=== PATIENT | female | born 1955 | race Caucasian/White ===

== ENCOUNTER 2016-06-07 09:45 | Observation (INO) | payer OTHER ==
[2016-06-07] MEDS ORDERED: ASPIRIN 81 MG TABLET, CHEWABLE PO ONE (10:03)
--- NOTE | 2016-06-07 10:06 | ER Document Report ---
ED Medical Screen (RME) - General Chief Complaint: Chest Pain Stated Complaint: CHEST PAIN Mode of Arrival: Ambulatory Information source: Patient Notes: patient presents to the emergency department with chest pain is started last night. Reports feeling palpitations. EKG Afib Reports history of high blood pressure. I have greeted and performed a rapid initial assessment of this patient. A comprehensive ED assessment and evaluation of the patient, analysis of test results and completion of the medical decision making process will be conducted by additional ED providers. TRAVEL OUTSIDE OF THE [place] IN LAST 30 DAYS: No - Related Data Allergies/Adverse Reactions: Penicillins Allergy (Verified 06/07/16 10:00) prednisone Allergy (Verified 06/07/16 10:00) Past Medical History - Social History Chew tobacco use (# tins/day): No Frequency of alcohol use: None Drug Abuse: None Renal/ Medical History: Denies: Hx Peritoneal Dialysis Physical Exam - Vital signs Vitals: Temp Pulse Resp BP Pulse Ox 97.9 F 60 20 147/109 H 99 06/07/16 10:00 06/07/16 10:00 06/07/16 10:00 06/07/16 10:00 06/07/16 10:00 Course - Vital Signs Vital signs: Temp Pulse Resp BP Pulse Ox 97.9 F 60 20 147/109 H 99 06/07/16 10:00 06/07/16 10:00 06/07/16 10:00 06/07/16 10:00 06/07/16 10:00
[2016-06-07] MEDS ORDERED: NORMAL SALINE 1000 ML 1,000 ML IV ONE (10:09)
--- NOTE | 2016-06-07 10:09 | EKG REPORT ---
SEVERITY:- ABNORMAL ECG - ATRIAL FIBRILLATION WITH RAPID V-RATE CONSIDER ANTEROSEPTAL INFARCT ST DEPRESSION, PROBABLY RATE RELATED : Confirmed by: Ángel Aceves MD 07-Jun-2016 10:09:17
[2016-06-07] MEDS ORDERED: DILTIAZEM HCL INJ 25 MG/5 ML VIAL IV ONE (10:14)
[2016-06-07] MEDS ORDERED: DILTIAZEM HCL/D5W 125 ML IV PRN (10:14)
--- NOTE | 2016-06-07 10:18 | ER Document Report ---
ED Cardiac - General Chief Complaint: Chest Pain Stated Complaint: CHEST PAIN Mode of Arrival: Ambulatory Notes: The patient is a 60-year-old female, past medical history hypertension, presents with 10 hours of substernal chest pressure and feeling like her heart is fluttering. She has had intermittent palpitations in the past that quickly resolved. She has never been diagnosed with A. fib. She took a baby aspirin this morning. Denies shortness of breath, fevers, cough, leg swelling, nausea, vomiting, syncope, headache or neurologic symptoms. TRAVEL OUTSIDE OF THE [place] IN LAST 30 DAYS: No - Related Data Allergies/Adverse Reactions: Penicillins Allergy (Verified 06/07/16 10:00) prednisone Allergy (Verified 06/07/16 10:00) Past Medical History - General Information source: Patient - Social History Smoking Status: Never Smoker Chew tobacco use (# tins/day): No Frequency of alcohol use: None Drug Abuse: None Family History: Reviewed & Not Pertinent Renal/ Medical History: Denies: Hx Peritoneal Dialysis Review of Systems - Review of Systems Notes: REVIEW OF SYSTEMS: CONSTITUTIONAL: -fevers, -chills EENT: -eye pain, -difficulty swallowing, -nasal congestion CARDIOVASCULAR: +chest pain, -syncope. RESPIRATORY: -cough, -SOB GASTROINTESTINAL: -abdominal pain, - nausea, -vomiting, -diarrhea GENITOURINARY: -dysuria, -hematuria MUSCULOSKELETAL: -back pain, -neck pain SKIN: -rash or skin lesions. HEMATOLOGIC: -easy bruising or bleeding. LYMPHATIC: -swollen, enlarged glands. NEUROLOGICAL: -altered mental status or loss of consciousness, -headache, - neurologic symptoms PSYCHIATRIC: -anxiety, -depression. ALL OTHER SYSTEMS REVIEWED AND NEGATIVE. Physical Exam - Vital signs Vitals: Temp Pulse Resp BP Pulse Ox 97.9 F 60 20 147/109 H 99 06/07/16 10:00 06/07/16 10:00 06/07/16 10:00 06/07/16 10:06/07/16 10:00 - Notes Notes: PHYSICAL EXAMINATION: GENERAL: Well-appearing, well-nourished and in no acute distress. HEAD: Atraumatic, normocephalic. EYES: Pupils equal round and reactive to light, extraocular movements intact, sclera anicteric, conjunctiva are normal. ENT: nares patent, oropharynx clear without exudates. Moist mucous membranes. NECK: Normal range of motion, supple without lymphadenopathy LUNGS: Breath sounds clear to auscultation bilaterally and equal. No wheezes rales or rhonchi. HEART: Irregularly irregular heart rate, tachycardic ABDOMEN: Soft, nontender, normoactive bowel sounds. No guarding, no rebound. No masses appreciated. EXTREMITIES: Normal range of motion, no pitting or edema. No cyanosis. NEUROLOGICAL: Cranial nerves grossly intact. Normal speech, normal gait. Normal sensory, motor, and reflex exams. PSYCH: Normal mood, normal affect. SKIN: Warm, Dry, normal turgor, no rashes or lesions noted. Course - Re-evaluation Re-evalutation: Patient with stable A. fib with RVR and chest pain. Symptoms ongoing for 12 hours. Patient converted into normal sinus rhythm and 15 mg diltiazem bolus and started on a drip. She is never been diagnosed with A. fib in the past and is not on any anticoagulation. Patient's chest pain resolved after she went into normal sinus rhythm at a rate of 65. First troponin 0.03. No signs of infection to explain leukocytosis. This may be a stress reaction to her A. fib. Since this is new onset A. fib, patient requires admission for further evaluation and treatment. CHADS score 1. Her PMD is Dr. Rivera. 06/07/16 11:[address] Matthews and will begin po Diltiazem (30 mg po q6h) and then stop drip. Will bring pt in for Tele Obs for further evaluation of her chest pain and A fib. - Vital Signs Vital signs: Temp Pulse Resp BP Pulse Ox 97.9 F 60 20 147/109 H 99 06/07/16 10:00 06/07/16 10:00 06/07/16 10:00 06/07/16 10:00 06/07/16 10:00 - Laboratory Result Diagrams: 06/07/16 10:10 06/07/16 10:10 Laboratory results interpreted by me: 06/07/16 06/07/16 10:10 10:10 WBC 15.6 H RBC 5.66 H Hgb 16.7 H Hct 49.3 H Absolute Neutrophils 10.8 H Sodium 149.1 H Chloride 109 H BUN 24 H Direct Bilirubin 0.5 H AST 48 H ALT 62 H - Diagnostic Test Radiology reviewed: Image reviewed, Reports reviewed Radiology results interpreted by me: CXR: Cardiomegaly without vascular congestion - EKG Interpretation by Me EKG shows normal: QRS Complexes Rate: Tachycardia Rhythm: A.Fib Discharge - Discharge Clinical Impression: Atrial fibrillation with rapid ventricular response Chest pain Qualifiers: Chest pain type: unspecified Qualified Code(s): R07.9 - Chest pain, unspecified Condition: Stable Disposition: ADMITTED OBSERVATION Admitting Provider: [facility] Admitted: Telemetry Referrals: GIBRAN ROMERO MD [Primary Care Provider] - Follow up as needed
[2016-06-07 10:31] LABS: ABSOLUTE LYMPHOCYTES (AUTO) 3.3 10^3/uL (0.5-4.7); ABSOLUTE MONOCYTES (AUTO) 1.4 10^3/uL (0.1-1.4); ABSOLUTE NEUT (AUTO) 10.8 10^3/uL (1.7-8.2); BASOPHILS % (AUTO) 0.3 % (0-2); EOSINOPHILS % (AUTO) 0.3 % (0-6); HEMATOCRIT 49.3 % (36.0-47.0); HEMOGLOBIN 16.7 g/dL (12.0-15.5); HGB HCT DIFFERENCE 0.8; LYMPHOCYTES % (AUTO) 21.2 % (13-45); MEAN CORPUSCULAR HEMOGLOBIN 29.5 pg (27.0-33.4); MEAN CORPUSCULAR HGB CONC 33.9 g/dL (32.0-36.0); MEAN CORPUSCULAR VOLUME 87 fl (80-97); MONOCYTES % (AUTO) 8.8 % (3-13); RED BLOOD COUNT 5.66 10^6/uL (3.72-5.28); RED CELL DISTRIBUTION WIDTH 13.6 % (11.5-14.0); SEGMENTED NEUTROPHILS % (AUTO) 69.4 % (42-78); WHITE BLOOD COUNT 15.6 10^3/uL (4.0-10.5)
[2016-06-07 10:36] LABS: PROTHROMBIN TIME 13.1 SEC (11.4-15.4)
[2016-06-07 10:50] LABS: ALANINE AMINOTRANSFERASE 62 U/L (9-52); ALBUMIN 4.5 g/dL (3.5-5.0); ALKALINE PHOSPHATASE 120 U/L (38-126); ANION GAP 13 (5-19); ASPARTATE AMINO TRANSFERASE 48 U/L (14-36); BILIRUBIN,DIRECT 0.5 mg/dL (0.0-0.4); BILIRUBIN,TOTAL 0.7 mg/dL (0.2-1.3); BLOOD UREA NITROGEN 24 mg/dL (7-20); CALCIUM 9.8 mg/dL (8.4-10.2); CARBON DIOXIDE 27 mmol/L (22-30); CHLORIDE 109 mmol/L (98-107); CREATINE KINASE 60 U/L (30-135); CREATININE RESULT 0.83 mg/dL (0.52-1.25); GLUCOSE 106 mg/dL (75-110); POTASSIUM 3.7 mmol/L (3.6-5.0); SODIUM 149.1 mmol/L (137-145); TOTAL PROTEIN 7.4 g/dL (6.3-8.2)
[2016-06-07 11:02] LABS: CREATINE KINASE MB 2.88 ng/mL (<4.55)
[2016-06-07 11:06] LABS: TROPONIN I 0.037 ng/mL
[2016-06-07] MEDS ORDERED: DILTIAZEM HCL 30 MG TABLET PO ONE (11:32)
[2016-06-07] MEDS ORDERED: ACETAMINOPHEN 325 MG TABLET PO PRN (14:07)
[2016-06-07] MEDS ORDERED: ONDANSETRON HCL INJ/PF 4 MG/2 ML SDV IV PRN (14:07)
[2016-06-07] MEDS ORDERED: NORMAL SALINE 1000 ML 1,000 ML IV PRN (14:07)
--- NOTE | 2016-06-07 14:29 | PDOC H&P ---
History of Present Illness Admission Date/PCP: 06/07/16 11:54 GIBRAN ROMERO MD Patient complains of: Chest pain History of Present Illness: CHAD OLVERA is a 60 year old female, history of hypertension presents to the hospital chest pain of one-day duration. Pain started last night characterized as heavy on the precordium with associated nausea as well as palpitation. Denies any vomiting shortness of breath or diaphoresis. No cough or chest congestion. No significant caffeine intake. Has been some sinus congestion recently and she started taking [id number] decongestants but none within the last 48 hours. Symptoms resove by itself. Earlier this morning , it has recurred. Patient went to the emergency room, multiple with atrial fibrillation with RVR, normal saline bolus, Cardizem intravenously, and drip was started. She converted back to sinus and patient was referred for observation. Past Medical History Past Medical History: Medication reconciliation pending verification from her pharmacist. Cardiac Medical History: Reports: Hypertension GI Medical History: Reports: Gastroesophageal Reflux Disease, Hiatal Hernia, Other - Fatty liver Musculoskeltal Medical History: Reports: Arthritis, Other - Bursitis Past Surgical History Past Surgical History: Reports: Hysterectomy Social History Information Source: Patient Smoking Status: Never Smoker Frequency of Alcohol Use: None Hx Recreational Drug Use: No Drugs: None Family History Family History: CVA, Hypertension, Malignancy Parental Family History Reviewed: Yes Children Family History Reviewed: Yes Sibling(s) Family History Reviewed.: Yes Medication/Allergy Home Medications: Azithromycin [Zithromax 250 mg Tablet] 250 mg PO DAILY 06/07/16 Cyanocobalamin (Vitamin B-12) [Vitamin B-12 1000 Mcg Tablet] 1 tab PO DAILY Esomeprazole Magnesium [Nexium] 40 mg PO DAILY 06/07/16 Losartan Potassium [Cozaar 50 mg Tablet] 50 mg PO DAILY 06/07/16 Meloxicam [Mobic 15 mg Tablet] 15 mg PO DAILY 06/07/16 Montelukast Sodium [Singulair 10 mg Tablet] 10 mg PO DAILY 06/07/16 Allergies/Adverse Reactions: Penicillins Allergy (Verified 06/07/16 10:00) prednisone Allergy (Verified 06/07/16 10:00) Review of Systems Constitutional: ABSENT: chills, fever(s), headache(s), night sweats, weakness, weight gain, weight loss Eyes: ABSENT: visual disturbances Ears: ABSENT: hearing changes Nose, Mouth, and Throat: ABSENT: mouth pain, sore throat Cardiovascular: PRESENT: chest pain, palpitations. ABSENT: dyspnea on exertion , edema, orthropnea Respiratory: ABSENT: cough, hemoptysis, sputum Gastrointestinal: PRESENT: nausea. ABSENT: abdominal pain, constipation, diarrhea, hematemesis, hematochezia, melena, vomiting Genitourinary: ABSENT: difficulty urinating, dysuria, hematuria Musculoskeletal: ABSENT: joint swelling Integumentary: ABSENT: pruritus, rash, wounds Neurological: ABSENT: abnormal gait, abnormal speech, confusion, dizziness, focal weakness, syncope Psychiatric: ABSENT: anxiety, depression, homidical ideation, suicidal ideation Endocrine: ABSENT: cold intolerance, heat intolerance, polydipsia, polyuria Hematologic/Lymphatic: ABSENT: easy bleeding, easy bruising Physical Exam Vital Signs: Temp Pulse Resp BP Pulse Ox 97.9 F 60 18 113/60 97 06/07/16 10:00 06/07/16 10:00 06/07/16 13:03 06/07/16 13:03 06/07/16 13:03 General appearance: PRESENT: no acute distress, obese Head exam: PRESENT: atraumatic, normocephalic Eye exam: PRESENT: conjunctiva pink, EOMI, PERRLA. ABSENT: scleral icterus Ear exam: PRESENT: normal external ear exam Mouth exam: PRESENT: dry mucosa, neck supple, tongue midline Throat exam: ABSENT: post pharyngeal erythema, tonsillar erythema Neck exam: ABSENT: carotid bruit, JVD, lymphadenopathy, thyromegaly Respiratory exam: PRESENT: clear to auscultation zoya. ABSENT: rales, rhonchi, wheezes Cardiovascular exam: PRESENT: RRR, +S1, +S2. ABSENT: diastolic murmur, gallop, rubs, systolic murmur Pulses: PRESENT: normal dorsalis pedis pul Vascular exam: PRESENT: normal capillary refill GI/Abdominal exam: PRESENT: normal bowel sounds, soft. ABSENT: distended, guarding, mass, organolmegaly, rebound, tenderness Rectal exam: PRESENT: deferred Extremities exam: PRESENT: full ROM. ABSENT: calf tenderness, clubbing, pedal edema Neurological exam: PRESENT: alert, awake, oriented to person, oriented to place , oriented to time, oriented to situation Psychiatric exam: PRESENT: appropriate affect, normal mood. ABSENT: homicidal ideation, suicidal ideation Skin exam: PRESENT: dry, intact, warm. ABSENT: cyanosis, rash Results Impressions: Chest X-Ray 06/07/16 10:03 IMPRESSION: HEART ENLARGED WITHOUT FAILURE. NO OTHER SIGNIFICANT RADIOGRAPHIC FINDING IN THE CHEST. Assessment & Plan - Diagnosis (1) Atrial fibrillation with rapid ventricular response Is this a current diagnosis for this admission?: Yes (2) Chest pain Qualifiers: Chest pain type: unspecified Qualified Code(s): R07.9 - Chest pain, unspecified Is this a current diagnosis for this admission?: Yes (3) Leukocytosis Qualifiers: Leukocytosis type: unspecified Qualified Code(s): D72.829 - Elevated white blood cell count, unspecified Is this a current diagnosis for this admission?: Yes (4) Dehydration Is this a current diagnosis for this admission?: Yes (5) Hypertension Qualifiers: Hypertension type: essential hypertension Qualified Code(s): I10 - Essential (primary) hypertension Is this a current diagnosis for this admission?: Yes (6) GERD (gastroesophageal reflux disease) Qualifiers: Esophagitis presence: without esophagitis Qualified Code(s): K21.9 - Gastro-esophageal reflux disease without esophagitis Is this a current diagnosis for this admission?: Yes (7) Hiatal hernia Is this a current diagnosis for this admission?: Yes - Time Time Spent: 50 to 70 Minutes - Plan Summary Plan Summary: Admit for observation and weaning Cardizem to off, begin oral Cardizem as well as aspirin. Obtain cardiac enzymes 3. Consult cardiology for the new onset A. fib. We will check TSH, N d-dimer. I will hydrate the patient with normal saline and recheck WBC in the morning. Supplemental oxygen will be given. Further testing depends on initial evaluation as outlined above.
[2016-06-07 15:20] LABS: APPEARANCE,URINE CLEAR; BILIRUBIN,URINE NEGATIVE (NEGATIVE); GLUCOSE, URINE NEGATIVE (NEGATIVE); KETONES,URINE NEGATIVE (NEGATIVE); LEUKOCYTE ESTERASE,URINE NEGATIVE (NEGATIVE); NITRITE,URINE NEGATIVE (NEGATIVE); PROTEIN,URINE NEGATIVE (NEGATIVE); URINE SPECIFIC GRAVITY 1.013; UROBILINOGEN,URINE NEGATIVE mg/dL (<2.0)
[2016-06-07] MEDS ORDERED: ENOXAPARIN SODIUM INJ 40 MG/0.4 ML DISP.SYRIN SUBCUT ONE (15:30)
[2016-06-07 15:37] LABS: CREATINE KINASE MB 2.09 ng/mL (<4.55); TROPONIN I 0.07 ng/mL
[2016-06-07] MEDS: LANSOPRAZOLE 30 MG TAB.RAP.DR PO SCH (16:26)
--- NOTE | 2016-06-07 17:15 | EKG REPORT ---
SEVERITY:- NORMAL ECG - SINUS RHYTHM : Confirmed by: Ángel Aceves MD 07-Jun-2016 17:14:48
[2016-06-07] MEDS: DOCUSATE SODIUM 100 MG CAPSULE PO SCH (17:34)
[2016-06-07] MEDS ORDERED: DILTIAZEM HCL 30 MG TABLET PO SCH (18:00)
[2016-06-07 18:49] LABS: CREATINE KINASE MB 1.71 ng/mL (<4.55); TROPONIN I 0.058 ng/mL
--- NOTE | 2016-06-07 18:50 | PDOC CONSULTATION ---
Consultation Consult Date: 06/07/16 Attending physician:: BRITT RODRIGUEZ Consult reason:: Chest pain, atrial fibrillation History of Present Illness Admission Date/PCP: 06/07/16 14:07 GIBRAN ROMERO MD Patient complains of: Chest pain and shortness of breath History of Present Illness: CHAD OLVERA is a 60 year old female, history of hypertension presents to the hospital chest pain of one-day duration. Pain started last night characterized as heavy on the precordium with associated nausea as well as palpitation. Patient claims she woke up last night with chest pain and palpitations. Denies any vomiting or diaphoresis. Patient has noted some shortness of breath. No cough or chest congestion. No significant caffeine intake. Has been some sinus congestion recently and she started taking over-the -counter decongestants but none within the last 48 hours. Symptoms resove by itself. Earlier this morning, it has recurred. Patient went to the emergency room, multiple with atrial fibrillation with RVR, normal saline bolus, Cardizem intravenously, and drip was started. She converted back to sinus. I was asked to evaluate patient because of chest pain, shortness of breath and palpitations with atrial fibrillation. Past Medical History Cardiac Medical History: Reports: Hypertension GI Medical History: Reports: Gastroesophageal Reflux Disease, Hiatal Hernia, Other - Fatty liver Musculoskeltal Medical History: Reports: Arthritis, Other - Bursitis Past Surgical History Past Surgical History: Reports: Hysterectomy Social History Information Source: Patient Smoking Status: Never Smoker Frequency of Alcohol Use: None Hx Recreational Drug Use: No Drugs: None - Advance Directive Resuscitation Status: Full Code Surrogate healthcare decision maker:: Patient's Family History Family History: CVA, Hypertension, Malignancy Parental Family History Reviewed: Yes Children Family History Reviewed: Yes Sibling(s) Family History Reviewed.: Yes - Negative for premature coronary artery disease or sudden cardiac in the family amongst first degree relatives. Medication/Allergy Home Medications: Azithromycin [Zithromax 250 mg Tablet] 250 mg PO DAILY 06/07/16 Cyanocobalamin (Vitamin B-12) [Vitamin B-12 1000 Mcg Tablet] 1 tab PO DAILY Esomeprazole Magnesium [Nexium] 40 mg PO DAILY 06/07/16 Losartan Potassium [Cozaar 50 mg Tablet] 50 mg PO DAILY 06/07/16 Meloxicam [Mobic 15 mg Tablet] 15 mg PO DAILY 06/07/16 Montelukast Sodium [Singulair 10 mg Tablet] 10 mg PO DAILY 06/07/16 Allergies/Adverse Reactions: Penicillins Allergy (Verified 06/07/16 10:00) prednisone Allergy (Verified 06/07/16 10:00) Review of Systems Review of Systems: Please see history of present illness and past medical history as wall. Constitutional: No fever or chills reported. Head : No recent chronic headaches, recent head injury. Eyes: No recent eye pain, diplopia, redness, discharge, acute visual changes. Ears: No recent chronic ear pain, acute hearing loss, ear discharge. Oral cavity: No recent ulcerations, bleeding, oral cavity discomfort. Neck: No recent acute neck pain reported. Hematologic: No recent easy bruising or bleeding or hematologic malignancy reported. Lymphatic: No recent lymphatic malignancy, chronic lymphadenopathy reported yet Cardiovascular system review: See history of present illness. Respiratory system review: No recent chronic cough, hemoptysis, blood clots in the lungs reported. Mild Shortness of breath on exertion Gastrointestinal system review: Negative for any recent acute or chronic abdominal pain, hematemesis, melena, recent change in bowel habits. Genitourinary system review: No recent acute or chronic hematuria, flank pain, UTI etc. reported. Skin system review: Negative for any recent abnormal bruising, no rash, no pruritus reported. Neurologic: No prior history of strokes, mini strokes, seizure disorder. Psychologic: No history of major psychosis or major depression reported. Musculoskeletal: Minor aches and pains reported. No acute joint swelling reported. Endocrine: No recent polyuria, polydipsia, recent heat or cold intolerance. Physical Exam Vital Signs: Temp Pulse Resp BP Pulse Ox 97.9 F 56 L 18 128/55 H 100 06/07/16 16:40 06/07/16 16:40 06/07/16 16:40 06/07/16 16:40 06/07/16 16:40 Intake & Output 06/06/16 06/07/16 06/08/16 06:59 06:59 06:59 Weight 90.5 kg Exam: GENERAL: well-nourished and in no acute distress. Alert and oriented x3 HEAD: Atraumatic, normocephalic. EYES: Pupils equal round and reactive to light, extraocular movements intact, sclera anicteric, conjunctiva are normal. ENT: TMs normal, nares patent, oropharynx clear without exudates. Moist mucous membranes. No oral ulcerations or bleeding gums noted NECK: supple without lymphadenopathy. Trachea is central. No cervical or axillary lymphadenopathy noted. Carotids are 2+, JVD WNL LUNGS: Respiration seems nonlabored, no significant accessory muscle action noted. Breath sounds clear to auscultation bilaterally and equal noted. No wheezes rales or rhonchi noted. No significant dullness noted on percussion. CHEST: Palpation of the chest wall shows no significant chest wall tenderness. No other significant abnormalities noted. HEART: [place] PUBLICIST, No PSH, 1/6 [place] aortic area, 1/6 rhodes systolic murmur mitral area, no rubs, no gallops. ABDOMEN: Soft, no significant tenderness appreciated, normoactive bowel sounds. No guarding, no rebound. No rigidity noted . No masses appreciated. EXTREMITIES: Pedal pulses are 1-2+, no calf tenderness noted. No clubbing or cyanosis.trace to 1+ pedal edema noted NEUROLOGICAL: Focused neurological exam showed no significant neurologic deficit. Normal speech, no focal weakness appreciated. PSYCH: Normal mood, normal affect. Judgment and insight within normal limits. SKIN: No significant ecchymosis, rash, ulcerations or signs of pruritus noted. MUSCULOSKELETAL EXAM: No significant joint swelling noted. Results Laboratory Results: 06/07/16 15:00 Urine Color YELLOW Urine Appearance CLEAR Urine pH 6.0 Ur Specific [place] 1.013 Urine Protein NEGATIVE Urine Glucose (UA) NEGATIVE Urine Ketones NEGATIVE Urine Blood NEGATIVE Urine Nitrite NEGATIVE Ur Leukocyte Esterase NEGATIVE Urine WBC (Auto) 1 Urine RBC (Auto) 0 06/07/16 06/07/16 14:32 14:32 Creatine Kinase 41 CK-MB (CK-2) 2.09 Troponin I 0.070 EKG Comments: Initial EKG shows atrial fibrillation with rapid ventricular response. Subsequent EKG showed sinus rhythm. Impressions: Chest X-Ray 06/07/16 10:03 IMPRESSION: HEART ENLARGED WITHOUT FAILURE. NO OTHER SIGNIFICANT RADIOGRAPHIC FINDING IN THE CHEST. Assessment & Plan - Diagnosis (1) Atrial fibrillation with rapid ventricular response Is this a current diagnosis for this admission?: Yes (2) Chest pain Qualifiers: Chest pain type: unspecified Qualified Code(s): R07.9 - Chest pain, unspecified Is this a current diagnosis for this admission?: Yes (3) Hiatal hernia Is this a current diagnosis for this admission?: Yes (4) Hypertension Qualifiers: Hypertension type: essential hypertension Qualified Code(s): I10 - Essential (primary) hypertension Is this a current diagnosis for this admission?: Yes (5) Sleep disorder Is this a current diagnosis for this admission?: Yes (6) Obesity Qualifiers: Obesity severity: unspecified obesity severity Is this a current diagnosis for this admission?: Yes - Notes Notes: Atrial fibrillation with rapid ventricular response: Patient presented with this. Currently in sinus rhythm. Patient has elevated chads score of 2. However there may be a precipitating factor of decongestant use. At this point would recommend just rate control and aspirin therapy. Chronic anti- coagulation would be considered if there is recurrence. Would recommend that patient have a event monitor for 30 days. Chest pain: Probably precipitated by atrial fibrillation. Patient could have underlying CAD, gastroesophageal reflux, distal gastritis. Have recommended a stress test to be performed. Hiatal hernia: Patient advised in weight loss and patient will benefit from proton pump inhibitor. Hypertension: Recommend good control of blood pressure. Sleep disorder: Patient gives history of multiple nocturnal awakening, nocturia , daytime fatigue and tiredness. Since patient has paroxysmal atrial fibrillation, will recommend that patient be tested for sleep apnea. Obesity: Patient has been encouraged in weight loss. - Time Time Spent: 30 to 50 Minutes - CODE STATUS was discussed, patient remains full code. Surrogate decision-maker patient's . Multiple medical problems were addressed.More than 50% of the time spent coordinating care, discussing management plans with involved caregivers. Management plans discussed with involved personnels. Medical decision making was of moderate complexity.
[2016-06-07 20:37] LABS: CHOLESTEROL 142.05 mg/dL (0-200); Direct HDL 47 mg/dL (>40); TRIGLYCERIDES 157 mg/dL (<150)
[2016-06-07 20:47] LABS: DIRECT LDL 68 mg/dL (<100)
[2016-06-07 20:52] LABS: VLDL CHOLESTEROL 31.4 mg/dL (10-31)
[2016-06-07 23:06] LABS: CREATINE KINASE MB 1.27 ng/mL (<4.55); TROPONIN I 0.04 ng/mL
[2016-06-08] MEDS ORDERED: DILTIAZEM HCL 30 MG TABLET PO SCH (00:42)
[2016-06-08] MEDS ORDERED: DILTIAZEM HCL 30 MG TABLET PO ONE (01:00)
[2016-06-08 05:17] LABS: HEMATOCRIT 39.9 % (36.0-47.0); HGB HCT DIFFERENCE 0.3; MEAN CORPUSCULAR HEMOGLOBIN 29.2 pg (27.0-33.4); MEAN CORPUSCULAR HGB CONC 33.6 g/dL (32.0-36.0); MEAN CORPUSCULAR VOLUME 87 fl (80-97); RED BLOOD COUNT 4.59 10^6/uL (3.72-5.28); RED CELL DISTRIBUTION WIDTH 13.7 % (11.5-14.0); WHITE BLOOD COUNT 6.6 10^3/uL (4.0-10.5)
[2016-06-08 05:45] LABS: HEMOGLOBIN 13.4 g/dL (12.0-15.5)
[2016-06-08 05:48] LABS: ANION GAP 10 (5-19); BLOOD UREA NITROGEN 18 mg/dL (7-20); CALCIUM 8.8 mg/dL (8.4-10.2); CARBON DIOXIDE 23 mmol/L (22-30); CHLORIDE 112 mmol/L (98-107); GLUCOSE 84 mg/dL (75-110); POTASSIUM 3.9 mmol/L (3.6-5.0)
[2016-06-08] MEDS: LANSOPRAZOLE 30 MG TAB.RAP.DR PO SCH (07:50)
[2016-06-08] MEDS ORDERED: ENOXAPARIN SODIUM INJ 40 MG/0.4 ML DISP.SYRIN SUBCUT SCH (08:00)
--- NOTE | 2016-06-08 08:18 | PDOC DISCHARGE SUMMARY ---
General - Admit/Disc Date/PCP Admission Date/Primary Care Provider: 06/07/16 14:07 GIBRAN ROMERO MD Discharge Date: 06/08/16 - Discharge Diagnosis (1) Atrial fibrillation with rapid ventricular response Is this a current diagnosis for this admission?: Yes (2) Chest pain Is this a current diagnosis for this admission?: Yes (3) Leukocytosis Is this a current diagnosis for this admission?: Yes (4) Dehydration Is this a current diagnosis for this admission?: Yes (5) Hypertension Is this a current diagnosis for this admission?: Yes (6) GERD (gastroesophageal reflux disease) Is this a current diagnosis for this admission?: Yes (7) Hiatal hernia Is this a current diagnosis for this admission?: Yes - Additional Information Resuscitation Status: Full Code Discharge Diet: Cardiac - low-fat low-salt Discharge Activity: Activity As Tolerated, Balance Activity w/Rest Home Medications: Cyanocobalamin (Vitamin B-12) [Vitamin B-12 1000 mcg Tablet] 1 tab PO DAILY Esomeprazole Magnesium [Nexium] 40 mg PO DAILY 06/07/16 Montelukast Sodium [Singulair 10 mg Tablet] 10 mg PO DAILY 06/07/16 Aspirin [Aspirin 325 mg Tablet] 325 mg PO DAILY tablet 06/08/16 Diltiazem HCl [Cardizem Cd 120 mg Capsule] 1 cap.sr PO DAILY #30 cap.sr Meloxicam [Mobic 15 mg Tablet] 15 mg PO DAILY PRN #0 06/08/16 Additional Information: 1. Event recorder as outpatient, stress test as outpatient with Dr. Hutton 2. Avoid decongestants and caffeine History of Present Illness Patient complains of: Chest pain History of Present Illness: CHAD OLVERA is a 60 year old female, history of hypertension presents to the hospital chest pain of one-day duration. Pain started last night characterized as heavy on the precordium with associated nausea as well as palpitation. Denies any vomiting shortness of breath or diaphoresis. No cough or chest congestion. No significant caffeine intake. Has been some sinus congestion recently and she started taking [id number] decongestants but none within the last 48 hours. Symptoms resove by itself. Earlier this morning , it has recurred. Patient went to the emergency room, multiple with atrial fibrillation with RVR, normal saline bolus, Cardizem intravenously, and drip was started. She converted back to sinus and patient was referred for observation. Hospital Course Hospital Course: The patient was admitted to telemetry. The patient converted back to sinus in the emergency room and was placed on oral Cardizem. Aspirin was also added. Serial cardiac enzymes were obtained and they were negative. Patient was hydrated and eventually her leukocytosis normalized as well as hemoglobin and hematocrit. No more arrhythmia was reported. There was an episode of bradycardia however and the patient's Cardizem was held this morning. The patient improved. Cardiology evaluated the patient and recommended outpatient event recorder and stress test, continue the Cardizem and aspirin. The rest of the hospital stay is unremarkable. Physical Exam Vital Signs: Temp Pulse Resp BP Pulse Ox 97.6 F 49 L 18 130/70 H 99 06/08/16 04:16 06/08/16 06:45 06/08/16 04:16 06/08/16 06:45 06/08/16 04:16 Intake & Output 06/07/16 06/08/16 06/09/16 06:59 06:59 06:59 Intake Total 580 Balance 580 Weight 92.6 kg General appearance: PRESENT: no acute distress, cooperative Head exam: PRESENT: normocephalic Eye exam: PRESENT: EOMI Mouth exam: PRESENT: moist, neck supple Neck exam: ABSENT: JVD Respiratory exam: PRESENT: clear to auscultation zoya Cardiovascular exam: PRESENT: RRR. ABSENT: gallop GI/Abdominal exam: PRESENT: normal bowel sounds, soft. ABSENT: distended, tenderness Extremities exam: ABSENT: pedal edema Neurological exam: PRESENT: alert, awake, oriented to person, oriented to place , oriented to time, oriented to situation Skin exam: PRESENT: dry, warm. ABSENT: cyanosis Results Laboratory Results: 06/08/16 04:24 06/08/16 04:31 06/07/16 06/07/16 06/08/16 15:00 18:08 04:24 WBC 6.6 RBC 4.59 Hgb 13.4 D Hct 39.9 MCV 87 MCH 29.2 MCHC 33.6 RDW 13.7 Plt Count 118 L Sodium Potassium Chloride Carbon Dioxide Anion Gap BUN Creatinine Est GFR ( Amer) Est GFR (Non-Af Amer) Glucose Calcium Triglycerides 157 H Cholesterol 142.05 LDL Cholesterol Direct 68 VLDL Cholesterol 31.4 H HDL Cholesterol 47 TSH Urine Color YELLOW Urine Appearance CLEAR Urine pH 6.0 Ur Specific [place] 1.013 Urine Protein NEGATIVE Urine Glucose (UA) NEGATIVE Urine Ketones NEGATIVE Urine Blood NEGATIVE Urine Nitrite NEGATIVE Ur Leukocyte Esterase NEGATIVE Urine WBC (Auto) 1 Urine RBC (Auto) 0 06/08/16 06/08/16 04:31 04:31 WBC RBC Hgb Hct MCV MCH MCHC RDW Plt Count Sodium 145.0 Potassium 3.9 Chloride 112 H Carbon Dioxide 23 Anion Gap 10 BUN 18 Creatinine 0.60 Est GFR ( Amer) > 60 Est GFR (Non-Af Amer) > 60 Glucose 84 Calcium 8.8 Triglycerides Cholesterol LDL Cholesterol Direct VLDL Cholesterol HDL Cholesterol TSH 3.85 Urine Color Urine Appearance Urine pH Ur Specific [place] Urine Protein Urine Glucose (UA) Urine Ketones Urine Blood Urine Nitrite Ur Leukocyte Esterase Urine WBC (Auto) Urine RBC (Auto) 06/07/16 06/07/16 06/07/16 14:32 14:32 18:08 Creatine Kinase 41 33 CK-MB (CK-2) 2.09 Troponin I 0.070 06/07/16 06/07/16 06/07/16 18:08 22:30 22:30 Creatine Kinase 26 L CK-MB (CK-2) 1.71 1.27 Troponin I 0.058 0.040 Impressions: Chest X-Ray 06/07/16 10:03 IMPRESSION: HEART ENLARGED WITHOUT FAILURE. NO OTHER SIGNIFICANT RADIOGRAPHIC FINDING IN THE CHEST. Qualifiers PATEINT BEING DISCHARGED WITH ANY OF THE FOLLOWING DIAGNOSIS?: No Plan Discharge Plan: Follow-up with primary care physician in one week. Follow-up with Dr. Hutton in 1-2 weeks. Time Spent: Less than 30 Minutes
[2016-06-08 08:25] VITALS: BP 144/78
[2016-06-08] MEDS: DOCUSATE SODIUM 100 MG CAPSULE PO SCH (09:16)
[2016-06-08] MEDS ORDERED: ASPIRIN 325 MG TABLET PO SCH (10:00)
[2016-06-08] MEDS ORDERED: MONTELUKAST SODIUM 10 MG TABLET PO SCH (18:00)
== END 2016-06-08 09:43 | disposition home or self-care (01) ==
LOC: ER 09:45 → UNDOADMOB 11:54 → EH 11:54 → 5 14:54
PROC: 3E033GC Introduction of Other Therapeutic Substance into Peripheral Vein, Percutaneous Approach (ICD-10-PCS; principal; 2016-06-07)
PROC: 3E033GC Introduction of Other Therapeutic Substance into Peripheral Vein, Percutaneous Approach (ICD-10-PCS; 2016-06-07)
PROC: 3E033GC Introduction of Other Therapeutic Substance into Peripheral Vein, Percutaneous Approach (ICD-10-PCS; 2016-06-07)
DX: I48.91 Unspecified atrial fibrillation (principal); R07.9 Chest pain, unspecified; D72.829 Elevated white blood cell count, unspecified; E86.0 Dehydration; I10 Essential (primary) hypertension; K21.9 Gastro-esophageal reflux disease without esophagitis; K44.9 Diaphragmatic hernia without obstruction or gangrene; G47.9 Sleep disorder, unspecified; E66.9 Obesity, unspecified
CPT/HCPCS: 93005; 96376; 99285; 96365; 96366; 36415 ×2; 82553; 82550; 84443; 85025; 85027; 85610; 80048; 80053; 81001; 84484; 85379; 80061; 71010; 93010; G0378 ×3; J3490 ×2; J1650; J7030 ×2

== ENCOUNTER 2018-08-22 10:19 | Emergency (ER) | payer OTHER ==
--- NOTE | 2018-08-22 11:01 | ER Document Report ---
ED Medical Screen (RME) - General Chief Complaint: Nausea/Vomiting/Diarrhea Stated Complaint: VOMITING Primary Care Provider: GIBRAN ROMERO MD [Primary Care Provider] - Follow up as needed TRAVEL OUTSIDE OF THE [place] IN LAST 30 DAYS: No - HPI Notes: 08/22/18 10:59 Patient is a 62-year-old female with a history of A. fib (on Eliquis), hypertension, hiatal hernia who presents complaining of fatigue, nausea, vomiting, and diarrhea that began 5 days ago. Patient states that she last had vomiting 3 days ago, but does continue to get nauseous when she tries to eat anything. She is not urinating as much as normal. Patient states that her diarrhea is primarily watery, but started noticing some red blood in the toilet and when she wipes over the past couple days. No recent antibiotic use, new foods, travel. Denies AYON, fever, neck pain, URI, CP, SOB, Abd pain, back pain, or rash. I have treated and performed a rapid initial assessment of this patient. A comprehensive ED assessment and evaluation of the patient, analysis of test results and completion of medical decision making process will be conducted by additional ED providers. PHYSICAL EXAMINATION: GENERAL: Well-appearing, well-nourished and in no acute distress. A&Ox4. Answers questions appropriately. ABDOMEN: Soft, nondistended abdomen. No guarding, no rebound. Normal bowel sounds present. No CVA tenderness bilaterally. Grossly nontender (cannot elicit thorough abd exam w/o bed, however). - Related Data Allergies/Adverse Reactions: Penicillins Allergy (Verified 08/22/18 10:27) prednisone Allergy (Verified 08/22/18 10:27) Past Medical History - Past Medical History Cardiac Medical History: Reports: Hx Hypertension Renal/ Medical History: Denies: Hx Peritoneal Dialysis GI Medical History: Reports: Hx Gastroesophageal Reflux Disease, Hx Hiatal Hernia Musculoskeltal Medical History: Reports Hx Arthritis Past Surgical History: Reports: Hx Hysterectomy, Hx Oral Surgery - Immunizations Hx Diphtheria, Pertussis, Tetanus Vaccination: Yes Physical Exam - Vital signs Vitals: Temp Pulse Resp BP Pulse Ox 97.7 F 69 16 131/76 H 98 08/22/18 10:24 08/22/18 10:24 08/22/18 10:24 08/22/18 10:24 08/22/18 10:24 Course - Vital Signs Vital signs: Temp Pulse Resp BP Pulse Ox 97.7 F 69 16 131/76 H 98 08/22/18 10:24 08/22/18 10:24 08/22/18 10:24 08/22/18 10:24 08/22/18 10:24 Doctor's Discharge - Discharge Referrals: GIBRAN ROMERO MD [Primary Care Provider] - Follow up as needed
[2018-08-22] MEDS ORDERED: ONDANSETRON HCL INJ/PF 4 MG/2 ML SDV IV ONE (11:12)
[2018-08-22] MEDS: NORMAL SALINE 1000 ML 1,000 ML IV PRN ×2 (11:35→13:50)
[2018-08-22 11:49] LABS: ABSOLUTE BASOPHILS # (AUTO) 0.1 10^3/uL (0.0-0.2); ABSOLUTE EOSINOPHILS # (AUTO) 0.2 10^3/uL (0.0-0.6); ABSOLUTE LYMPHOCYTES (AUTO) 1.7 10^3/uL (0.5-4.7); ABSOLUTE MONOCYTES (AUTO) 2.1 10^3/uL (0.1-1.4); ABSOLUTE NEUT (AUTO) 9.1 10^3/uL (1.7-8.2); BASOPHILS % (AUTO) 0.5 % (0-2); EOSINOPHILS % (AUTO) 1.2 % (0-6); HEMATOCRIT 46.6 % (36.0-47.0); LYMPHOCYTES % (AUTO) 13.1 % (13-45); MEAN CORPUSCULAR HEMOGLOBIN 29.4 pg (27.0-33.4); MEAN CORPUSCULAR HGB CONC 34.3 g/dL (32.0-36.0); MEAN CORPUSCULAR VOLUME 86 fl (80-97); MONOCYTES % (AUTO) 16.1 % (3-13); PLATELET COUNT 227 10^3/uL (150-450); RED BLOOD COUNT 5.44 10^6/uL (3.72-5.28); SEGMENTED NEUTROPHILS % (AUTO) 69.1 % (42-78); TOTAL CELLS COUNTED % (AUTO) 100 %; WHITE BLOOD COUNT 13.2 10^3/uL (4.0-10.5)
[2018-08-22 12:08] LABS: ALANINE AMINOTRANSFERASE 51 U/L (9-52); ALBUMIN 3.8 g/dL (3.5-5.0); ALKALINE PHOSPHATASE 100 U/L (38-126); ANION GAP 12 (5-19); ASPARTATE AMINO TRANSFERASE 65 U/L (14-36); BILIRUBIN,DIRECT 0.5 mg/dL (0.0-0.4); BILIRUBIN,TOTAL 1.1 mg/dL (0.2-1.3); BLOOD UREA NITROGEN 19 mg/dL (7-20); CALCIUM 9.4 mg/dL (8.4-10.2); CARBON DIOXIDE 26 mmol/L (22-30); CHLORIDE 102 mmol/L (98-107); GLUCOSE 102 mg/dL (75-110); INTERNATIONAL RATION (INR) 1.33; LIPASE 1805.6 U/L (23-300); POTASSIUM 3.2 mmol/L (3.6-5.0); PROTHROMBIN TIME 17.1 SEC (11.4-15.4); SODIUM 139.7 mmol/L (137-145); TOTAL PROTEIN 7.1 g/dL (6.3-8.2)
[2018-08-22 12:09] LABS: PARTIAL THROMBOPLASTIN TIME 34.2 SEC (23.5-35.8)
[2018-08-22 12:10] LABS: APPEARANCE,URINE CLEAR; BILIRUBIN,URINE NEGATIVE (NEGATIVE); COLOR,URINE YELLOW; GLUCOSE, URINE NEGATIVE (NEGATIVE); KETONES,URINE NEGATIVE (NEGATIVE); LEUKOCYTE ESTERASE,URINE SMALL (NEGATIVE); NITRITE,URINE NEGATIVE (NEGATIVE); PROTEIN,URINE NEGATIVE (NEGATIVE); URINE SPECIFIC GRAVITY 1.006; UROBILINOGEN,URINE NEGATIVE mg/dL (<2.0)
[2018-08-22] MEDS ORDERED: LORAZEPAM INJ 2 MG/1 ML VIAL IV ONE (12:30)
--- NOTE | 2018-08-22 13:25 | RADIOLOGY REPORT (SQ) ---
EXAM DESCRIPTION: CT ABD/PELVIS WITH IV ONLY COMPLETED DATE/TIME: 08/22/2018 1:07 pm REASON FOR STUDY: elevated lipase COMPARISON: None. TECHNIQUE: CT scan of the abdomen and pelvis performed using helical scanning technique with dynamic intravenous contrast injection. No oral contrast. Images reviewed with lung, soft tissue, and bone w indows. Reconstructed coronal and sagittal MPR images reviewed. Delayed images for evaluation of the urinary system also acquired. All images stored on PACS. All CT scanners at this facility use dose modulation, iterative reconstruction, and/or weight based d osing when appropriate to reduce radiation dose to as low as reasonably achievable (ALARA). [facility]: Dose Right [facility]: CareDose [facility]: Dose Right [facility]: Teradose 4D [facility]: Lantronix CONTRAST TYPE AND DOSE: contrast/concentration: Isovue 350.00 mg/ml; Total Contrast Delivered: 100.0 ml; Total Saline Delivered: 72.0 ml RENAL FUNCTION: BUN 19 creatinine 1.46 RADIATION DOSE: CT Rad equipment meets quality standard of care and radiation dose reduction techniq ues were employed. CTDIvol: 17.6 - 19.3 mGy. DLP: 2231 mGy-cm.. LIMITATIONS: None. FINDINGS: LOWER CHEST: No significant findings. LIVER: Normal size. No enhancing masses. No dilated ducts. SPLEEN: Normal size. No focal lesions. PANCREAS: No masses identified. No significant calcifications. No adjacent inflammation or peripancre atic fluid collections. Pancreatic duct not dilated. GALLBLADDER: Tiny calcified stones. No inflammatory changes to suggest cholecystitis. ADRENAL GLANDS: No significant masses. RIGHT KIDNEY AND URETER: No cysts identified. No solid masses identified. No calcified stones. No hyd ronephrosis or hydroureter. LEFT KIDNEY AND URETER: No cysts identified. No solid masses identified. No calcified stones. No hydr onephrosis or hydroureter. AORTA AND VESSELS: No aneurysm. No dissection. Renal arteries, SMA, celiac without significant stenos is. RETROPERITONEUM: No bulky retroperitoneal adenopathy. BOWEL AND PERITONEAL CAVITY: No obstruction or inflammatory changes. No free fluid. APPENDIX: Not visualized. PELVIS: Prior hysterectomy. No free fluid. Unremarkable bladder. ABDOMINAL WALL: No masses. No hernias. BONES: No acute findings. Scoliosis. OTHER: No other significant finding. IMPRESSION: NO ACUTE FINDINGS IN THE ABDOMEN OR PELVIS ON CT SCAN WITH IV CONTRAST. TECHNICAL DOCUMENTATION: JOB ID: [id number] Quality ID # [id number]: Final reports with documentation of one or more dose reduction techniques (e.g., Au tomated exposure control, adjustment of the mA and/or kV according to patient size, use of iterative reconstruction technique) 2010 [employer]- All Rights Reserved Reading location - IP/workstation name: [email or web address]
--- NOTE | 2018-08-22 15:04 | ER Document Report ---
ED General - General Chief Complaint: Nausea/Vomiting/Diarrhea Stated Complaint: VOMITING Time Seen by Provider: 08/22/18 11:02 Primary Care Provider: GIBRAN ROMERO MD [Primary Care Provider] - Follow up as needed TRAVEL OUTSIDE OF THE [place] IN LAST 30 DAYS: No - HPI Notes: Patient is a 62-year-old female presents to the emergency department for evaluation. On Thursday she developed a fever and chills. She had nausea and vomiting. She was seen by the PA at her primary care physician's office. She had blood work done, was told she would likely had a virus. Over the last several days she has had multiple episodes of watery diarrhea. She states occasionally there is bright red blood. She has had a colonoscopy in the past. She really denies any significant belly pain at this time. She states she had some earlier in the week there was cramping, primarily associated with bowel movements. She denies any abnormal travel, no recent antibiotic therapy. She s tates she has not had a fever since Thursday, Thursday morning at the latest. - Related Data Allergies/Adverse Reactions: Penicillins Allergy (Verified 08/22/18 10:27) prednisone Allergy (Verified 08/22/18 10:27) Past Medical History - General Information source: Patient - Social History Smoking Status: Never Smoker Frequency of alcohol use: None Drug Abuse: None Family History: CVA, Hypertension, Malignancy Patient has suicidal ideation: No Patient has homicidal ideation: No - Past Medical History Cardiac Medical History: Reports: Hx Atrial Fibrillation, Hx Hypertension Renal/ Medical History: Denies: Hx Peritoneal Dialysis GI Medical History: Reports: Hx Gastroesophageal Reflux Disease, Hx Hiatal Hernia Musculoskeletal Medical History: Reports Hx Arthritis Past Surgical History: Reports: Hx Hysterectomy, Hx Oral Surgery - Immunizations Hx Diphtheria, Pertussis, Tetanus Vaccination: Yes Hx Pneumococcal Vaccination: 12/15/15 Review of Systems - Review of Systems Constitutional: See HPI EENT: No symptoms reported Cardiovascular: No symptoms reported Respiratory: No symptoms reported Gastrointestinal: See HPI Genitourinary: No symptoms reported Female Genitourinary: No symptoms reported Musculoskeletal: No symptoms reported Skin: No symptoms reported Neurological/Psychological: No symptoms reported Physical Exam - Vital signs Vitals: Temp Pulse Resp BP Pulse Ox 97.7 F 69 16 131/76 H 98 08/22/18 10:24 08/22/18 10:24 08/22/18 10:24 08/22/18 10:24 08/22/18 10:24 - Notes Notes: Vital signs reviewed, please refer to chart. Head is normocephalic, atraumatic. Pupils equal round, reactive to light. Neck is supple without meningismus. Heart is regular rate and rhythm. Lungs are clear to auscultation bilaterally. Abdomen is soft, nontender, normoactive bowel sounds throughout. Extremities without cyanosis, clubbing. Posterior calves are nontender. Peripheral pulses are equal. Skin is warm and dry. Patient is awake, alert, neurological exam is nonfocal. Course - Re-evaluation Re-evalutation: 08/22/18 15:00 Patient presents the emergency department for evaluation of nausea, vomiting, diarrhea. On laboratory investigations her lipase is found to be elevated. C. difficile was found to be negative. I did reexamine the patient's abdomen. She has no significant tenderness at this time. CT scan of the abdomen pelvis with IV contrast did not reveal any significant peripancreatic inflammation. Patient is feeling improved after IV fluids. She states she feels comfortable going home. She actually states she is hungry. I do not have a clear reason for elevation in lipase, but I do not have a very strong suspicion for clinically relevant pancreatitis. All of these findings were explained to the patient. I told her that she should follow-up with her primary care provider tomorrow. I encouraged her to follow a liquid diet only tonight. She understands that if she develops pain, fevers, or any other new or concerning symptoms, she needs to return immediately to the emergency department for evaluation. 08/22/18 15:01 - Vital Signs Vital signs: Temp Pulse Resp BP Pulse Ox 97.7 F 69 16 131/76 H 98 08/22/18 10:24 08/22/18 10:24 08/22/18 10:24 08/22/18 10:24 08/22/18 10:24 - Laboratory Result Diagrams: 08/22/18 11:30 08/22/18 11:30 Laboratory results interpreted by me: 08/22/18 08/22/18 08/22/18 11:30 11:30 11:30 WBC 13.2 H RBC 5.44 H Hgb 16.0 H Monocytes % 16.1 H Absolute Neutrophils 9.1 H Absolute Monocytes 2.1 H PT 17.1 H Potassium 3.2 L Creatinine 1.46 H Est GFR ( Amer) 44 L Est GFR (Non-Af Amer) 36 L Direct Bilirubin 0.5 H AST 65 H Lipase 1805.6 H Urine Blood Ur Leukocyte Esterase 08/22/18 11:30 WBC RBC Hgb Monocytes % Absolute Neutrophils Absolute Monocytes PT Potassium Creatinine Est GFR ( Amer) Est GFR (Non-Af Amer) Direct Bilirubin AST Lipase Urine Blood MODERATE H Ur Leukocyte Esterase SMALL H - Diagnostic Test Radiology reviewed: Reports reviewed Radiology results interpreted by me: 08/22/18 15:01 Abdomen/Pelvis CT 08/22/18 12:30 IMPRESSION: NO ACUTE FINDINGS IN THE ABDOMEN OR PELVIS ON CT SCAN WITH IV CONTRAST. Discharge - Discharge Clinical Impression: Elevated lipase Nausea and vomiting Qualifiers: Vomiting Intractability: non-intractable Diarrhea Qualifiers: Diarrhea type: presumed infectious Qualified Code(s): R19.7 - Diarrhea, unspecified Condition: Stable Disposition: HOME, SELF-CARE Instructions: Antinausea Medication ([facility]), Diarrhea, Nonspecific ([facility]) Additional Instructions: Your lipase was elevated today. This should be rechecked. Clear liquids only. You should be rechecked by your primary care provider tomorrow. Return to the emergency department with worsening or new concerning symptoms of any sort. Referrals: GIBRAN ROMERO MD [Primary Care Provider] - Follow up as needed
[2018-08-22 15:29] VITALS: BP 124/66
== END 2018-08-22 15:29 | disposition home or self-care (01) ==
LOC: ER 10:19
DX: R11.2 Nausea with vomiting, unspecified (principal); R19.7 Diarrhea, unspecified; R74.8 Abnormal levels of other serum enzymes; I10 Essential (primary) hypertension; Z88.0 Allergy status to penicillin; Z88.8 Allergy status to other drugs, medicaments and biological substances; Z87.19 Personal history of other diseases of the digestive system
CPT/HCPCS: 99284; 96361; 96374; 96375; 86900; 86901; 36415; 87045; 87205; 86850; 83690; 85025; 85610; 85730; 87077; 80053; 81001; 87493; 74177; J2060; J2405; J7030